=== PATIENT | male | born 1980 ===

== ENCOUNTER → 2018-05-12 | Outpatient (CLI) | payer BC ==
[2018-05-12 16:37] LABS: BASOPHILS ABSOLUTE AUTO 0.03 K/mm3 (0.00-0.23); BASOPHILS PERCENT AUTO 0 % (0-2); EOSINOPHILS PERCENT AUTO 3 % (0-6); Hematocrit 46.8 % (37.0-53.0); Hemoglobin 15.4 g/dL (13.5-17.5); IMMATURE GRAN ABSOLUTE AUTO 0.02 K/mm3 (0.00-0.10); IMMATURE GRAN PERCENT AUTO 0 % (0-1); LYMPHOCYTES ABSOLUTE AUTO 2.56 K/mm3 (0.84-5.20); LYMPHOCYTES PERCENT AUTO 34 % (21-46); MONOCYTES ABSOLUTE AUTO 0.41 K/mm3 (0.16-1.47); MONOCYTES PERCENT AUTO 6 % (4-13); Mean Corpuscular HGB 29.1 pg (26.0-34.0); Mean Corpuscular HGB Conc 32.9 g/dL (31.5-36.5); Mean Corpuscular Volume 89 fL (80-100); Mean Platelet Volume 9.9 fL (9.1-12.4); NEUTROPHILS ABSOLUTE AUTO 4.28 K/mm3 (1.96-9.15); NEUTROPHILS PERCENT AUTO 57 % (41-73); Platelet Count 256 K/mm3 (150-400); RDW Coefficient Variation 12.5 % (11.7-14.2); RDW Standard Deviation 40.5 fL (35.1-46.3); Red Blood Cell Count 5.29 M/mm3 (4.30-5.90)
[2018-05-12 16:50] LABS: C-REACTIVE PROTEIN, EXT RANGE <0.290 mg/dL (0.000-0.300)
[2018-05-12 16:56] LABS: Alanine Aminotransfer (ALT/SGP 120 U/L (12-78); Albumin, Blood 4.5 g/dL (3.4-5.0); Albumin/Globulin Ratio 1.2 (0.8-1.8); Alk Phos 74 U/L (50-136); Anion Gap 7 mmol/L (6-16); Aspartate Aminotrans (AST/SGOT 36 U/L (12-37); Bilirubin, Total 0.7 mg/dL (0.1-1.0); Blood Urea Nitrogen 14 mg/dL (8-24); Bun/Creatinine Ratio 12.6 (12.0-20.0); CO2, Blood 28 mmol/L (21-32); Calcium, Blood 9.2 mg/dL (8.5-10.1); Chloride, Blood 103 mmol/L (98-108); Creatinine, Blood 1.11 mg/dL (0.60-1.20); Globulin, Blood 3.8 g/dL (2.2-4.0); Glomerular Filtration Rate >60 (60-); Glucose, Blood 90 mg/dL (70-99); Potassium, Blood 3.6 mmol/L (3.5-5.5); Sodium, Blood 138 mmol/L (136-145); Total Protein, Blood 8.3 g/dL (6.4-8.2)
== END | disposition home or self-care (01) ==
LOC: LAB SHORT 16:31 → LAB 16:31
PROVIDERS: Nurse Practitioner Family
DX: R07.89 Other chest pain (principal)
CPT/HCPCS: 80053; 84443; 85025; 86140